=== PATIENT | female | born 1990 | race African-American/Black ===

== ENCOUNTER 2023-09-19 08:27 | Emergency (ER) | payer MEDICAID ==
[~2023-09-19] VITALS: Ht 172.7 cm; Wt 88.6 kg
[2023-09-19 08:33] VITALS: O2SAT 96
[2023-09-19] MEDS ORDERED: LIDOCAINE HCL/PF 1% 10 MG/ML 5ML VIAL INFIL ONE (10:15)
[2023-09-19] MEDS ORDERED: BACITRACIN ZINC OINT UDPKT TOP ONE (10:15)
[2023-09-19] MEDS: TETANUS, DIPHTHERIA, PERTUSSIS VAC/PF 0.5ML (>10YR OLD) IM ONE (10:34)
[2023-09-19] MEDS ORDERED: BO1 TP (11:18)
[2023-09-19 11:44] VITALS: BP 137/98; PULSE 76; RESP 18; TEMP 98.5
== END 2023-09-19 11:46 | disposition home or self-care (01) ==
LOC: ER 08:27
DX: S61.411A Laceration without foreign body of right hand, initial encounter (principal); M25.562 Pain in left knee; V49.9XXA Car occupant (driver) (passenger) injured in unspecified traffic accident, initial encounter; Y93.89 Activity, other specified; Y92.89 Other specified places as the place of occurrence of the external cause; Y99.8 Other external cause status
CPT/HCPCS: 99283; 81025; 90715; 12002; 90471; J3490

== ENCOUNTER 2023-10-02 16:03 | Emergency (ER) | payer MEDICAID ==
[~2023-10-02] VITALS: Ht 172.7 cm; Wt 91.0 kg
[~2023-10-02 16:03] MED LIST: BO1 TP
[2023-10-02 16:09] VITALS: BP 134/76; O2SAT 99
[2023-10-02 18:29] VITALS: PULSE 74; RESP 12; TEMP 98.3
== END 2023-10-02 18:36 | disposition home or self-care (01) ==
LOC: ER 16:03
DX: S61.011D Laceration without foreign body of right thumb without damage to nail, subsequent encounter (principal); Z48.02 Encounter for removal of sutures; X58.XXXD Exposure to other specified factors, subsequent encounter
CPT/HCPCS: 99281; Z7610